=== PATIENT | male | born 1955 | race Caucasian/White ===

== ENCOUNTER → 2016-05-10 | Outpatient (CLI) | payer BC, OTHER | LOC: KOH-I 15:47 | DX: M25.511 Pain in right shoulder (principal) | CPT/HCPCS: 73030 ==

== ENCOUNTER → 2020-03-14 | Outpatient (CLI) | payer OTHER | LOC: NM 09:29 | DX: R07.9 Chest pain, unspecified (principal); I07.9 Rheumatic tricuspid valve disease, unspecified | CPT/HCPCS: ECHO; 78452; 93017; 93306; A9502 ==